=== PATIENT | female | born 1960 | race Caucasian/White ===

== ENCOUNTER 2016-08-09 11:16 | Emergency (ER) | payer MEDICAID ==
[2016-08-09 11:46] LABS: BASOPHILS 11.7 % (0-2); EOSINOPHILS 0 % (0-7); IMMATURE GRANULOCYTES 17.5 % (0-5); LYMPHOCYTES 20.3 % (15-50); MCH 29.2 pg (26.0-34.0); MCHC 33.7 g/dL (31.0-37.0); MCV 86.5 fL (80.0-100.0); MONOCYTES 16.2 % (2-11); NEUTROPHILS 34.3 % (40-80); RDW 14.9 % (11.5-14.5); WBC 3.2 10x3/uL (4.8-10.8)
[2016-08-09 11:49] LABS: HEMATOCRIT 16.6 % (36.0-48.0); HEMOGLOBIN 5.6 g/dL (12-16); PLATELET COUNT 18 10x3/uL (130-400); RBC 1.92 10x6/uL (4.00-5.40)
[2016-08-09 11:57] LABS: ALBUMIN 2.6 g/dL (3.4-5.0); ALKALINE PHOSPHATASE 82 U/L (46-116); ALT (SGPT) 8 U/L (10-68); BILIRUBIN - TOTAL 0.36 mg/dL (0.2-1.3); CALC OSMOLALITY 267 mosm/kg (275-300); CALCIUM 7.7 mg/dL (8.5-10.1); CARBON DIOXIDE 29.4 mmol/L (21.0-32.0); CHLORIDE - SERUM 102 mmol/L (98-107); CREATININE - SERUM 0.7 mg/dL (0.6-1.3); GLUCOSE 89 mg/dL (74-106); POTASSIUM - SERUM 4.3 mmol/L (3.5-5.1); PROTEIN - SERUM 5.6 g/dL (6.4-8.2); SODIUM 135 mmol/L (136-145); UREA NITROGEN 9 mg/dL (7-18); eGFR NON AFRICAN AMERICAN > 90 mL/min (90-120)
[2016-08-09 12:17] LABS: PLATELET ESTIMATE DECREASED; PLATELET MORPHOLOGY GIANT PLTS PRESENT
== END 2016-08-09 14:31 | disposition home or self-care (01) ==
LOC: D.ER 11:16
PROVIDERS: Emergency Medicine
DX: R55 Syncope and collapse (principal); D61.818 Other pancytopenia; D75.9 Disease of blood and blood-forming organs, unspecified; R16.1 Splenomegaly, not elsewhere classified

== ENCOUNTER 2017-05-22 17:13 | Inpatient (IN) | payer MEDICARE ==
[~2017-05-22] VITALS: Ht 154.9 cm; Wt 45.5 kg
--- NOTE | ~2017-05-22 | HEMODYNAMI ---
PATIENT:TRICIA DUARTE MEDICAL RECORD: [id number] : 58 LOCATION:[facility] D.2226 ADMISSION DATE: 05/22/17 Generatedon:05/23/20177:26 Patient name: TRICIA DUARTE Patient #: [id number] SSN: : 1960 Date of study: 05/23/2017 Page: Of Hemodynamic Procedure Report Patient Data Patient Demographics Procedure consent was obtained First Name: TRICIA Gender: Female Last Name: GERALD : 1960 Patient #: [id number] Age: 57 year(s) Race: Unknown Additional ID: [id number] Contact details [address]: [address] [place] [address] ROAD State: [place] City: [place] Zip code: [address] Admission Admission Data Admission Date: 05/22/2017 Admission Time: 23:59 Room #: D.2226 Procedure Procedure Types Cath Procedure Peripheral Cath Diagnostic Procedure Miscellaneous PARACENTESIS WITH GUIDE Procedure Description Procedure Date Procedure Date: 05/23/2017 Procedure Start Time: 6:57 Procedure Staff Name Function Giorgi [email or web address] RT License And Permit Specialist [employer] RT Monitor Thomas Bravo MD Performing Physician Rebecca Sahu RN Nurse Hemodynamics Rest Heart Rate: 108 (bpm) Snapshots Pre Cath Intra NCS Post Cath Vital Signs Time Heart Resp SPO2 NIBP Rhythm Pain Sedation Rate (ipm) (%) (mmHg) Status Level (bpm) 6:55:03 107 33 94 111/57(82) NSR 0 (11) 10(A) , No pain 6:59:17 106 33 96 112/59(81) NSR 0 (11) 10(A) , No pain 7:03:31 109 31 98 113/59(73) NSR 0 (11) 10(A) , No pain 7:08:30 108 31 95 106/58(0) NSR 0 (11) 10(A) , No pain 7:08:34 108 33 96 107/53(75) NSR 0 (11) 10(A) , No pain 7:12:48 104 30 98 102/47(70) NSR 0 (11) 10(A) , No pain 7:17:48 103 30 98 104/55(0) NSR 0 (11) 10(A) , No pain 7:17:50 103 35 98 88/53(57) NSR 0 (11) 10(A) , No pain 7:21:55 108 19 96 103/57(79) NSR 0 (11) 10(A) , No pain Procedure Log Time Note 6:47:56 Giorgi Isaac RT (R) (CV) sent for patient. Start room use. 6:48:05 Time tracking: Regular hours 6:48:11 Plan of Care:Hemodynamics will remain stable., Cardiac rhythm will remain stable., Comfort level will be maintained., Respiratory function will remain adequate., Patient/ family verbilizes understanding of procedure., Procedure tolerated without complication., Recovers from procedure without complications.. 6:48:16 Patient arrived from Med/Surg to IR. Patient remains on bed/stretcher for procedure. 6:48:17 Correct patient and procedure confirmed by team. 6:48:19 Signed procedure consent form obtained from patient. 6:48:20 ECG and BP/O2 sat monitors applied to patient. 6:48:21 6:48:21 Full Disclosure recording started 6:48:45 H&P Date Dictated: 05/23/2017 Within 30 days and on chart.. 6:48:46 Pre-procedure instructions explained to patient. 6:48:47 Pre-op teaching completed and patient verbalized understanding. 6:48:48 Family unavailable. 6:48:52 Patient NPO since Midnight. 6:48:55 Is patient on blood thinner?No 6:48:56 Is the patient allergic to Iodine/contrast media? No. 6:48:59 Patient diabetic? No. 6:49:01 6:49:02 ----Pre-sedation anethsthesia assessment.---- 6:49:05 Previous problem with sedation/anesthesia? No ? 6:49:08 Snore? Yes 6:49:10 Sleep apnea? No 6:49:14 Deviated septum? No 6:49:16 Opens mouth fully? Yes 6:49:18 Sticks out tongue? Yes 6:49:20 Airway obstruction? No ? 6:49:22 6:49:31 Patient pain scale 0/10 no. 6:49:41 Sharps counted by scrub and verified by R.N. 6:49:42 Alarms reviewed by R. N. 6:49:48 Right abdomen area was prepped with chlora-prep and draped in sterile fashion 6:53:48 Vital chart was started 6:53:49 Baseline sample Acquired. 6:56:02 Physician arrived 6:56:03 --------ALL STOP TIME OUT------ 6:56:04 Final Timeout: patient, procedure, and site verified with staff and physician. All members of the team are in agreement. 6:56:18 Right abdomen site verified by team. 6:56:24 Sedation plan: Local Anesthetic Medication:Lidocaine 6:57:02 Procedure started. 6:57:12 Local anesthetic to Abdominal area with Lidocaine 1% by Thomas Bravo MD.INITIAL ACCESS ONLY 6:57:13 [id number] 8FR CATH DRAIN TRAY opened to sterile field. 7:08:00 CONNECTING TUBE FOR DRAINAGE BAG ([id number]) opened to sterile field. 7:18:01 Dermabond Pen opened to sterile field. 7:18:13 3.9 liters drained 7:18:20 Procedure ended.(Physican Out) 7:18:24 Sharps counted by scrub and verified by R.N. 7:18:26 Insertion/operative site no bleeding no hematoma. 7:18:36 Post Abdominal area:stable 7:18:46 Post procedure instruction explained to patient.Patient verbalizes understanding. 7:18:47 Procedure and supply charges have been captured, reviewed, submitted and are correct. 7:22:37 Report given to Med/Surg. 7:23:19 Patient transfered to Med/Surg with Bed. 7:24:38 Full Disclosure recording stopped Device Usage Item Name Manufacture Quantity Catalog Hospital Part Current Mini mal Lot# / Number Charge Number Stock Stock Serial# Code [id number] CareFusion 1 [id number] 5 8FR CATH DRAIN TRAY CONNECTING TUBE [place] 1 [id number] FOR DRAINAGE Scientific BAG ([id number]) Dermabond Pen Ethicon 1 [id number] Signature Audit [place] Stage Time Signature Unsigned Intra-Procedure 05/23/2017 Giorgi 7:26:40 AM Isaac RT (R) (CV) Signatures Monitor : Giorgi Signature : Isaac RT Date : Time : [address] [address]
[2017-05-22 20:10] LABS: MCH 29.1 pg (26.0-34.0); MCHC 33.8 g/dL (31.0-37.0); RDW 17.1 % (11.5-14.5); WBC 12.6 10x3/uL (4.8-10.8)
[2017-05-22 20:29] LABS: ALBUMIN 2.4 g/dL (3.4-5.0); ALKALINE PHOSPHATASE 90 U/L (46-116); ALT (SGPT) 20 U/L (10-68); CALC OSMOLALITY 270 mosm/kg (275-300); CALCIUM 7.9 mg/dL (8.5-10.1); CARBON DIOXIDE 25.4 mmol/L (21.0-32.0); CHLORIDE - SERUM 102 mmol/L (98-107); CREATININE - SERUM 0.8 mg/dL (0.6-1.3); GLUCOSE 88 mg/dL (74-106); POTASSIUM - SERUM 4.6 mmol/L (3.5-5.1); PROTEIN - SERUM 6.1 g/dL (6.4-8.2); SODIUM 134 mmol/L (136-145); UREA NITROGEN 23 mg/dL (7-18); eGFR NON AFRICAN AMERICAN 78 mL/min (90-120)
[2017-05-22 20:36] LABS: INR 1.24 (0.85-1.17); PROTIME 15.2 SECONDS (11.6-15.0)
[2017-05-22 20:44] LABS: RBC 1.72 10x6/uL (4.00-5.40)
[2017-05-22 20:45] LABS: HEMATOCRIT 14.8 % (36.0-48.0); PLATELET COUNT 30 10x3/uL (130-400)
[2017-05-22 22:04] LABS: LYMPHOCYTES 65 % (15-50); NEUTROPHILS 23 % (40-80)
[2017-05-22 22:05] LABS: PLATELET ESTIMATE DECREASED
[2017-05-23 01:20] VITALS: BP 110/48; Ht 154.9 cm; Wt 45.5 kg
[2017-05-23] MEDS ORDERED: JADENU (03:06)
[2017-05-23] MEDS ORDERED: EXJADE500 MG PO (03:06)
[2017-05-23 06:33] VITALS: BP 181/69
[2017-05-23 12:31] VITALS: BP 98/33
== END 2017-05-23 13:44 | disposition home or self-care (01) | DRG 841 ==
LOC: D.ER 17:13 → D.MS 23:59
PROVIDERS: General Practice; Physician Assistant
PROC: 0W9G3ZZ Drainage of Peritoneal Cavity, Percutaneous Approach (ICD-10-PCS; principal; 2017-05-23 06:55)
DX: D75.81 Myelofibrosis (principal); R18.8 Other ascites; D61.818 Other pancytopenia; D63.8 Anemia in other chronic diseases classified elsewhere; R16.2 Hepatomegaly with splenomegaly, not elsewhere classified

== ENCOUNTER 2017-06-10 20:55 | Outpatient (CLI) | payer MEDICARE ==
[2017-05-23 01:20] VITALS: BMI 18.9
--- NOTE | ~2017-06-10 | HEMODYNAMI ---
PATIENT:TRICIA DUARTE MEDICAL RECORD: [id number] : 58 LOCATION:[facility] DMarieE08[facility]# [id number] ADMISSION DATE: 06/11/17 Generatedon:06/11/201712:39 Patient name: TRICIA DUARTE Patient #: [id number] SSN: : 1960 Date of study: 06/11/2017 Page: Of Hemodynamic Procedure Report Patient Data Patient Demographics Procedure consent was obtained First Name: TRICIA Gender: Female Last Name: GERALD : 1960 Patient #: [id number] Age: 57 year(s) Race: Unknown Additional ID: [id number] Contact details [address]: [address] [place] [address] ROAD State: [place] City: [place] Zip code: [address] Admission Admission Data Admission Date: 06/11/2017 Admission Time: 3:20 Room #: D.E08 Procedure Procedure Types Cath Procedure Peripheral Cath Diagnostic Procedure Miscellaneous PARACENTESIS WITH GUIDE Procedure Description Procedure Date Procedure Date: 06/11/2017 Procedure Start Time: 12:11 Procedure Staff Name Dory Allen MD Performing Physician Giorgi Gray RT Monitor Melonie Cornell RN Nurse Luis Alberto Fernandez RN Nurse Hemodynamics Rest Pre Cath Intra NCS Post Cath Vital Signs Time Heart Resp SPO2 etCO2 NIBP Rhythm Pain Sedation Rate (ipm) (%) (mmHg) (mmHg) Status Level (bpm) 12:09:28 96 29 99 0 112/66(78) NSR 0 (11) 10(A) , No pain 12:13:28 94 29 99 0 116/71(97) NSR 0 (11) 10(A) , No pain 12:17:27 94 25 100 0 114/70(91) NSR 0 (11) 10(A) , No pain 12:21:27 96 26 100 0 113/67(83) NSR 0 (11) 10(A) , No pain 12:25:31 91 19 97 0 105/64(87) NSR 0 (11) 10(A) , No pain 12:29:28 94 23 99 0 117/68(91) NSR 0 (11) 10(A) , No pain 12:33:30 92 25 97 0 110/62(88) NSR 0 (11) 10(A) , No pain 12:37:30 91 22 98 0 113/66(83) NSR 0 (11) 10(A) , No pain Procedure Log Time Note 12:03:48 Melonie Cornell RN sent for patient. Start room use. 12:03:56 Time tracking: Regular hours 12:04:00 Plan of Care:Hemodynamics will remain stable., Cardiac rhythm will remain stable., Comfort level will be maintained., Respiratory function will remain adequate., Patient/ family verbilizes understanding of procedure., Procedure tolerated without complication., Recovers from procedure without complications.. 12:04:16 Patient arrived from ED to IR. Patient remains on bed/stretcher for procedure. 12:04:18 Correct patient and procedure confirmed by team. 12:04:20 Signed procedure consent form obtained from patient. 12:04:22 ECG and BP/O2 sat monitors applied to patient. 12:04:23 - 12:04:34 Pre-procedure instructions explained to patient. 12:04:35 Pre-op teaching completed and patient verbalized understanding. 12:04:36 Family in waiting room. 12:04:38 Patient NPO since Midnight. 12:04:57 Patient pain scale 0/10 no pain. 12:05:02 IV patent on arrival in port with 0.9% NaCl at [facility]. 12:05:09 Right abdomen area was prepped with chlora-prep and draped in sterile fashion 12:05:10 Alarms reviewed by R. N. 12:05:11 Alarms reviewed by R. N. 12:05:11 Sharps counted by scrub and verified by R.N. 12:08:27 Vital chart was started 12:11:34 Physician arrived 12:11:35 --------ALL STOP TIME OUT------ 12:11:35 Final Timeout: patient, procedure, and site verified with staff and physician. All members of the team are in agreement. 12:11:38 Right abdomen site verified by team. 12:11:44 Sedation plan: Local Anesthetic Medication:Lidocaine 12:11:54 Procedure started. 12:11:54 Full Disclosure recording started 12:11:58 Local anesthetic to Abdominal area with Lidocaine 1% by Jesus Allen MD.INITIAL ACCESS ONLY 12:12:07 [id number] 8FR CATH DRAIN TRAY opened to sterile field. 12:12:20 CONNECTING TUBE FOR DRAINAGE BAG ([id number]) opened to sterile field. 12:37:17 Procedure ended.(Physican Out) 12:37:34 Dermabond Pen opened to sterile field. 12:37:53 Sharps counted by scrub and verified by R.N. 12:38:21 Insertion/operative site no bleeding no hematoma. 12:38:31 Post Abdominal area:stable 12:38:33 Post procedure instruction explained to patient.Patient verbalizes understanding. 12:38:34 Procedure and supply charges have been captured, reviewed, submitted an d are correct. 12:39:11 Report given to ED. 12:39:15 Patient transfered to ED with Stretcher. 12:39:39 Vital chart was stopped Device Usage Item Name Manufacture Quantity Catalog Hospital Part Current Mini [facility] Lot# / Number Charge Number Stock Stock Serial# Code [id number] CareFusion 1 [id number] 5 8FR CATH DRAIN TRAY CONNECTING TUBE [place] 1 [id number] 5 [id number] FOR DRAINAGE Scientific BAG ([id number]) Dermabond Pen Ethicon 1 [id number] Signature Audit [place] Stage Time Signature Unsigned Intra-Procedure 06/11/2017 Giorgi 12:39:37 PM Isaac RT (R) (CV) Signatures Monitor : Giorgi Signature : Isaac RT Date : Time : [facility] [address] [place] [address]
[~2017-06-10 20:55] MED LIST: EXJADE500 MG PO; JADENU
[2017-06-10 23:41] LABS: LYMPHOCYTES 31.7 % (15-50); MCH 28.3 pg (26.0-34.0); MCV 80.7 fL (80.0-100.0); NEUTROPHILS 54.2 % (40-80); RBC 2.44 10x6/uL (4.00-5.40); RDW 16.1 % (11.5-14.5); WBC 7.1 10x3/uL (4.8-10.8)
[2017-06-10 23:54] LABS: ALBUMIN 2.2 g/dL (3.4-5.0); ALKALINE PHOSPHATASE 95 U/L (46-116); ALT (SGPT) 15 U/L (10-68); AMYLASE - SERUM 26 U/L (25-115); CALC OSMOLALITY 278 mosm/kg (275-300); CALCIUM 7.5 mg/dL (8.5-10.1); CHLORIDE - SERUM 103 mmol/L (98-107); CREATININE - SERUM 0.7 mg/dL (0.6-1.3); LIPASE 50 U/L (73-393); POTASSIUM - SERUM 3.8 mmol/L (3.5-5.1); PROTEIN - SERUM 5.7 g/dL (6.4-8.2); SODIUM 137 mmol/L (136-145); UREA NITROGEN 22 mg/dL (7-18); eGFR NON AFRICAN AMERICAN > 90 mL/min (90-120)
[2017-06-10 23:55] LABS: APPEARANCE CLEAR (CLEAR); BILIRUBIN NEGATIVE (NEGATIVE); COLOR YELLOW (YELLOW); GLUCOSE NEGATIVE (NEGATIVE); KETONE NEGATIVE (NEGATIVE); NITRITE NEGATIVE (NEGATIVE); PROTEIN 1+ mg/dL (NEGATIVE); SPECIFIC GRAVITY 1.015 (1.005-1.020); UROBILINOGEN NORMAL (NORMAL)
[2017-06-10 23:56] LABS: BACTERIA FEW /hpf (NONE SEEN); EPITHELIAL CELLS 0-5 /hpf (0-5); RED CELLS - URINE 0-5 /hpf (0-5); WHITE CELLS - URINE 0-5 /hpf (0-5)
[2017-06-10 23:59] LABS: HEMATOCRIT 19.7 % (36.0-48.0); HEMOGLOBIN 6.9 g/dL (12-16)
[2017-06-11] LABS: GLUCOSE 136 mg/dL (74-106); PLATELET COUNT 17 10x3/uL (130-400)
[2017-06-11 00:30] LABS: PLATELET ESTIMATE DECREASED
[2017-06-11 00:41] LABS: INR 1.19 (0.85-1.17); PROTIME 14.6 SECONDS (11.6-15.0)
[2017-06-11 01:05] LABS: APTT > 200.0 SECONDS (22.8-39.4)
[2017-06-11 16:28] VITALS: BP 100/44
== END 2017-06-11 20:45 | disposition home or self-care (01) ==
LOC: OBSVTIME → D.ER 20:55 → D.CATH 20:55 → OBSVTIME 06-11 03:20 → D.MS 06-11 03:20 → D.ER 06-11 03:20 → D.EDHOLD 06-11 03:20 → D.CATH 06-11 20:45 → D.MS 06-11 20:45
PROVIDERS: Family Medicine
DX: R18.8 Other ascites (principal); D61.818 Other pancytopenia; Z01.812 Encounter for preprocedural laboratory examination

== ENCOUNTER 2017-07-28 22:24 | Inpatient (IN) | payer MEDICARE ==
[~2017-07-28] VITALS: Ht 154.9 cm; Wt 42.7 kg
--- NOTE | ~2017-07-28 | CN ---
PATIENT NAME:TRICIA DUARTE MEDICAL RECORD: [id number] : 58 LOCATION:D. D.2136 ADMIT DATE: 07/29/17 ACCOUNT: [id number] CONSULTING PHYSICIAN: DALILA MATHEWS MD REFERRING PHYSICIAN: SAI KC MD DATE OF CONSULTATION: 08/02/2017 Pulmonary Consultation CONSULT REQUESTING PHYSICIAN: Sai Kc MD REASON FOR CONSULTATION: Worsening pneumonia, left pleural effusion. HISTORY OF PRESENT ILLNESS: Ms. Duarte is a 57-year-old female who has a history of myelofibrosis, splenectomy, thrombocytopenia. The patient admitted with nausea and vomiting. She has pneumonia in the left lower lobe as well as small pleural effusion. Repeat chest radiograph shows that the pneumonia and pleural effusion is getting worse. According to the patient, she has some low-grade fever. She is very weak and lethargic. The patient had lost significant amount of weight. PAST MEDICAL HISTORY: 1. Myelofibrosis. 2. Leukemia. 3. History of bilateral pleural effusion. 4. History of syncope. 5. History of hepatosplenomegaly. 6. History of splenic infarct. She was on Eliquis at one stage. PAST SURGICAL HISTORY: She has splenectomy. ALLERGIES: SHE IS ALLERGIC TO PENICILLIN AND DEFERASIROX. MEDICATIONS: On Tizaro is reviewed. PERSONAL AND SOCIAL HISTORY: The patient is a nonsmoker, nondrinker. FAMILY HISTORY: Not known. PHYSICAL EXAMINATION: GENERAL: Now, the patient is lying comfortably in bed. She is not in acute distress. She is looking very frail. VITAL SIGNS: The blood pressure 131/68, pulse is 69, respiration is 20, temperature is 97.2, SpO2 96% on room air. HEENT: Conjunctivae are pink. Sclerae are not icteric. NECK: Supple, no JVD. CHEST: The chest excursion is minimal on both. There are some crackles. There is dullness on percussion on the left. HEART: Rhythm regular, normal sound, no murmur. ABDOMEN: Soft, bowel sounds present. No hepatosplenomegaly. RECTAL: Deferred. EXTREMITIES: No cyanosis, no clubbing, no pedal edema. SKIN: Warm, normal turgor. CENTRAL NERVOUS SYSTEM: The patient is awake and alert. There is no obvious intracranial abnormality. CONSULT REPORT [id number] DATA: CBC: WBC 16.7, hemoglobin 6.9, hematocrit 23.5, the platelet count 125. Chemistry: Sodium 135, potassium is 5, BUN is 7, creatinine 0.7. IMAGING: CTA of the chest was negative for PE, but there was initially small right and moderate left pleural effusion and there was multifocal infiltrate. There was also borderline cardiomegaly. The repeat chest radiograph on 01 August showed worsening left-sided pleural effusion and bilateral infiltrate. IMPRESSION: 1. Pneumonia, multilobar, left more than the right, most likely hospital-acquired pneumonia with the patient's recent hospitalization. 2. Left-sided pleural effusion, most likely parapneumonic. 3. Thrombocytopenia, status post splenectomy. 4. Leukocytosis. 5. Myelofibrosis. 6. Anemia. 7. Cachexia. 8. Possible leukemia. RECOMMENDATION: 1. Continue Levaquin and cefepime. I will add vancomycin to cover for Gram-positive cocci, possible MRSA, Gram-negative rods. 2. Proceed with thoracentesis in the morning. Labs are ordered. 3. Supplemental oxygen. 4. Follow up labs and chest radiograph. Dr. Minor has already been consulted for myelofibrosis. Dr. Kc, thank you for involving me in the care of Ms. Duarte. TRANSINT:[id number] Voice Confirmation ID: [id number] DOCUMENT ID: [id number] DALILA MATHEWS MD at 1208 CC: SAI KC MD [id number] DICTATION DATE: 08/02/17 1620 INDEPENDENT DISTRIBUTOR: 08/02/17 1654 DIS IN 08/05/17 [place] [id number] [place] [id number]
[2017-07-29 00:25] LABS: HEMATOCRIT 29.6 % (36.0-48.0); HEMOGLOBIN 8.5 g/dL (12-16); MCH 26.5 pg (26.0-34.0); MCHC 28.7 g/dL (31.0-37.0); MCV 92.2 fL (80.0-100.0); RBC 3.21 10x6/uL (4.00-5.40); RDW 19.7 % (11.5-14.5); WBC 17.8 10x3/uL (4.8-10.8)
[2017-07-29 00:26] LABS: PLATELET COUNT 201 10x3/uL (130-400)
[2017-07-29 00:29] LABS: ALBUMIN 2.5 g/dL (3.4-5.0); ALKALINE PHOSPHATASE 372 U/L (46-116); ALT (SGPT) 37 U/L (10-68); CALC OSMOLALITY 271 mosm/kg (275-300); CALCIUM 8.6 mg/dL (8.5-10.1); CARBON DIOXIDE 24.7 mmol/L (21.0-32.0); CHLORIDE - SERUM 102 mmol/L (98-107); CREATININE - SERUM 0.6 mg/dL (0.6-1.3); POTASSIUM - SERUM 4.3 mmol/L (3.5-5.1); PROTEIN - SERUM 6.5 g/dL (6.4-8.2); SODIUM 136 mmol/L (136-145); UREA NITROGEN 15 mg/dL (7-18); eGFR NON AFRICAN AMERICAN > 90 mL/min (90-120)
[2017-07-29 00:34] LABS: GLUCOSE 88 mg/dL (74-106)
[2017-07-29 00:58] LABS: ANISOCYTOSIS 2+; EOSINOPHILS 1 % (0-7); LYMPHOCYTES 43 % (15-50); MICROCYTOSIS 1+; NEUTROPHILS 42 % (40-80); PLATELET ESTIMATE DECREASED; POIKILOCYTOSIS 2+
[2017-07-29] MEDS ORDERED: ELIQUIS5 MG PO (20:52)
[2017-07-29 21:12] VITALS: BP 109/55
[2017-07-30] VITALS (7 sets, daily range): BP systolic 86–112; BP diastolic 43–62; BMI 16.0
[2017-07-30 06:50] LABS: ALBUMIN 1.9 g/dL (3.4-5.0); ALKALINE PHOSPHATASE 291 U/L (46-116); ALT (SGPT) 35 U/L (10-68); CALC OSMOLALITY 266 mosm/kg (275-300); CALCIUM 8.1 mg/dL (8.5-10.1); CARBON DIOXIDE 23.2 mmol/L (21.0-32.0); CHLORIDE - SERUM 101 mmol/L (98-107); CREATININE - SERUM 0.6 mg/dL (0.6-1.3); GLUCOSE 73 mg/dL (74-106); PROTEIN - SERUM 5.6 g/dL (6.4-8.2); SODIUM 134 mmol/L (136-145); UREA NITROGEN 12 mg/dL (7-18); eGFR NON AFRICAN AMERICAN > 90 mL/min (90-120)
[2017-07-30 08:12] LABS: HEMATOCRIT 32.5 % (36.0-48.0); HEMOGLOBIN 9.7 g/dL (12-16); MCH 27.7 pg (26.0-34.0); MCHC 29.8 g/dL (31.0-37.0); MCV 92.9 fL (80.0-100.0); PLATELET COUNT 94 10x3/uL (130-400); RDW 18.3 % (11.5-14.5); WBC 21.1 10x3/uL (4.8-10.8)
[2017-07-30 08:55] LABS: APTT 59.7 SECONDS (22.8-39.4); INR 1.52 (0.85-1.17); PROTIME 17.8 SECONDS (11.6-15.0)
[2017-07-30 09:55] LABS: BASOPHILS 1 % (0-2); LYMPHOCYTES 38 % (15-50); MONOCYTES 3 % (2-11); NEUTROPHILS 34 % (40-80); PLATELET ESTIMATE NORMAL; PLATELET MORPHOLOGY GIANT PLTS PRESENT; ROULEAUX OCC
[2017-07-30 11:09] LABS: APPEARANCE CLEAR (CLEAR); BILIRUBIN NEGATIVE (NEGATIVE); COLOR YELLOW (YELLOW); GLUCOSE NEGATIVE (NEGATIVE); KETONE NEGATIVE (NEGATIVE); NITRITE NEGATIVE (NEGATIVE); PROTEIN 1+ mg/dL (NEGATIVE); SPECIFIC GRAVITY 1.025 (1.005-1.020); UROBILINOGEN NORMAL (NORMAL)
[2017-07-30 11:26] LABS: BACTERIA MODERATE /hpf (NONE SEEN); EPITHELIAL CELLS 0-5 /hpf (0-5); GRANULAR CAST OCC /lpf (NONE SEEN); HYALINE CAST RARE /lpf (NONE SEEN); MUCUS <1+ /lpf (NONE SEEN); WHITE CELLS - URINE 0-5 /hpf (0-5)
[2017-07-30 16:30] LABS: MCH 26.5 pg (26.0-34.0); MCHC 28.8 g/dL (31.0-37.0); RBC 2.49 10x6/uL (4.00-5.40); RDW 19.7 % (11.5-14.5)
[2017-07-30 16:37] LABS: HEMATOCRIT 22.9 % (36.0-48.0); HEMOGLOBIN 6.6 g/dL (12-16); PLATELET COUNT 205 10x3/uL (130-400)
[2017-07-30 17:52] LABS: EOSINOPHILS 1 % (0-7); LYMPHOCYTES 44 % (15-50); MONOCYTES 2 % (2-11); NEUTROPHILS 49 % (40-80); PLATELET ESTIMATE INCREASED
[2017-07-30 17:53] LABS: POIKILOCYTOSIS OCC; POLYCHROMASIA OCC; STOMATOCYTES 1+
[2017-07-30 18:52] LABS: HEMATOCRIT 22.7 % (36.0-48.0); MCH 26.9 pg (26.0-34.0); MCHC 29.1 g/dL (31.0-37.0); MCV 92.7 fL (80.0-100.0); RBC 2.45 10x6/uL (4.00-5.40); RDW 19.5 % (11.5-14.5)
[2017-07-30 18:53] LABS: WBC 19.4 10x3/uL (4.8-10.8)
[2017-07-30 18:55] LABS: HEMOGLOBIN 6.6 g/dL (12-16); PLATELET COUNT 127 10x3/uL (130-400)
[2017-07-31 00:20] VITALS: BP 114/57
[2017-07-31 08:18] VITALS: BP 113/53
[2017-07-31 09:26] LABS: MCH 27.6 pg (26.0-34.0); MCHC 29.6 g/dL (31.0-37.0); MCV 93.3 fL (80.0-100.0); PLATELET COUNT 124 10x3/uL (130-400); RBC 2.68 10x6/uL (4.00-5.40); RDW 19.2 % (11.5-14.5)
[2017-07-31 09:36] LABS: HEMOGLOBIN 7.4 g/dL (12-16)
[2017-07-31 10:06] LABS: EOSINOPHILS 1 % (0-7); LYMPHOCYTES 32 % (15-50); MONOCYTES 1 % (2-11); NEUTROPHILS 41 % (40-80); PLATELET ESTIMATE NORMAL; PLATELET MORPHOLOGY GIANT PLTS PRESENT
[2017-07-31 10:11] LABS: ANISOCYTOSIS 1+; POIKILOCYTOSIS OCC
[2017-07-31 10:12] LABS: ALKALINE PHOSPHATASE 279 U/L (46-116); ALT (SGPT) 30 U/L (10-68); CALC OSMOLALITY 269 mosm/kg (275-300); CALCIUM 8.4 mg/dL (8.5-10.1); CARBON DIOXIDE 24.4 mmol/L (21.0-32.0); CHLORIDE - SERUM 103 mmol/L (98-107); CREATININE - SERUM 0.5 mg/dL (0.6-1.3); GLUCOSE 82 mg/dL (74-106); POLYCHROMASIA OCC; POTASSIUM - SERUM 3.8 mmol/L (3.5-5.1); PROTEIN - SERUM 5.9 g/dL (6.4-8.2); SODIUM 136 mmol/L (136-145); UREA NITROGEN 9 mg/dL (7-18); eGFR NON AFRICAN AMERICAN > 90 mL/min (90-120)
[2017-07-31 11:20] VITALS: BP 95/50
[2017-07-31 15:09] VITALS: BP 112/61
[2017-07-31 20:00] VITALS: BP 106/54
[2017-08-01 07:13] LABS: HEMOGLOBIN 9.7 g/dL (12-16); MCHC 30.3 g/dL (31.0-37.0); MCV 92.5 fL (80.0-100.0); PLATELET COUNT 104 10x3/uL (130-400); RBC 3.46 10x6/uL (4.00-5.40); RDW 18.6 % (11.5-14.5); WBC 12.4 10x3/uL (4.8-10.8)
[2017-08-01 07:20] LABS: ALBUMIN 1.9 g/dL (3.4-5.0); ALKALINE PHOSPHATASE 252 U/L (46-116); ALT (SGPT) 25 U/L (10-68); CALC OSMOLALITY 266 mosm/kg (275-300); CARBON DIOXIDE 25.2 mmol/L (21.0-32.0); CHLORIDE - SERUM 103 mmol/L (98-107); CREATININE - SERUM 0.6 mg/dL (0.6-1.3); GLUCOSE 80 mg/dL (74-106); PROTEIN - SERUM 5.6 g/dL (6.4-8.2); SODIUM 135 mmol/L (136-145); UREA NITROGEN 7 mg/dL (7-18); eGFR NON AFRICAN AMERICAN > 90 mL/min (90-120)
[2017-08-01 07:45] LABS: BASOPHILS 2 % (0-2); LYMPHOCYTES 39 % (15-50); NEUTROPHILS 42 % (40-80); PLATELET ESTIMATE DECREASED; PLATELET MORPHOLOGY GIANT PLTS PRESENT
[2017-08-01 08:36] VITALS: BP 139/69
[2017-08-01 11:34] VITALS: BP 148/78
[2017-08-01 15:42] VITALS: BP 136/71
[2017-08-01 19:00] VITALS: BP 115/43
[2017-08-02 03:51] VITALS: BP 102/41
[2017-08-02 07:51] VITALS: BP 120/65
[2017-08-02 10:40] LABS: HEMATOCRIT 23.5 % (36.0-48.0); MCH 26.8 pg (26.0-34.0); MCHC 29.4 g/dL (31.0-37.0); MCV 91.4 fL (80.0-100.0); PLATELET COUNT 125 10x3/uL (130-400); RBC 2.57 10x6/uL (4.00-5.40); RDW 19.8 % (11.5-14.5); WBC 16.7 10x3/uL (4.8-10.8)
[2017-08-02 10:42] LABS: HEMOGLOBIN 6.9 g/dL (12-16)
[2017-08-02 10:54] LABS: ALKALINE PHOSPHATASE 268 U/L (46-116); ALT (SGPT) 24 U/L (10-68); CALC OSMOLALITY 267 mosm/kg (275-300); CALCIUM 7.9 mg/dL (8.5-10.1); CARBON DIOXIDE 25.7 mmol/L (21.0-32.0); CHLORIDE - SERUM 104 mmol/L (98-107); CREATININE - SERUM 0.5 mg/dL (0.6-1.3); GLUCOSE 93 mg/dL (74-106); PROTEIN - SERUM 5.1 g/dL (6.4-8.2); SODIUM 135 mmol/L (136-145); UREA NITROGEN 7 mg/dL (7-18); eGFR NON AFRICAN AMERICAN > 90 mL/min (90-120)
[2017-08-02 10:56] LABS: BASOPHILS 1 % (0-2); LYMPHOCYTES 46 % (15-50); NEUTROPHILS 38 % (40-80)
[2017-08-02 10:57] LABS: PLATELET ESTIMATE DECREASED; PLATELET MORPHOLOGY GIANT PLTS PRESENT
[2017-08-02 11:21] VITALS: BP 135/72
[2017-08-02 15:07] VITALS: BP 131/68
[2017-08-02 20:00] VITALS: BP 134/70
[2017-08-03] VITALS: BP 120/57
[2017-08-03 04:00] VITALS: BP 111/51
[2017-08-03 09:11] LABS: ALKALINE PHOSPHATASE 260 U/L (46-116); ALT (SGPT) 20 U/L (10-68); CALC OSMOLALITY 273 mosm/kg (275-300); CALCIUM 8.2 mg/dL (8.5-10.1); CARBON DIOXIDE 24.5 mmol/L (21.0-32.0); CHLORIDE - SERUM 104 mmol/L (98-107); CREATININE - SERUM 0.6 mg/dL (0.6-1.3); GLUCOSE 148 mg/dL (74-106); POTASSIUM - SERUM 3.9 mmol/L (3.5-5.1); PROTEIN - SERUM 5.9 g/dL (6.4-8.2); SODIUM 136 mmol/L (136-145); UREA NITROGEN 9 mg/dL (7-18); eGFR NON AFRICAN AMERICAN > 90 mL/min (90-120)
[2017-08-03 09:14] VITALS: BP 115/55
[2017-08-03 09:22] LABS: HEMATOCRIT 21.1 % (36.0-48.0); MCH 26.4 pg (26.0-34.0); MCHC 28.9 g/dL (31.0-37.0); MCV 91.3 fL (80.0-100.0); PLATELET COUNT 143 10x3/uL (130-400); RBC 2.31 10x6/uL (4.00-5.40); WBC 22.7 10x3/uL (4.8-10.8)
[2017-08-03 10:21] LABS: HEMOGLOBIN 6.1 g/dL (12-16)
[2017-08-03 11:00] LABS: ANISOCYTOSIS OCC; LYMPHOCYTES 33 % (15-50); MONOCYTES 6 % (2-11); NEUTROPHILS 25 % (40-80); PLATELET ESTIMATE NORMAL; PLATELET MORPHOLOGY GIANT PLTS PRESENT
[2017-08-03 11:01] LABS: HYPOCHROMASIA OCC; SMUDGE CELLS OCC
[2017-08-03 11:40] VITALS: BP 119/68
[2017-08-03 20:00] VITALS: BP 117/54
[2017-08-03 22:18] VITALS: Ht 154.9 cm; Wt 42.7 kg
[2017-08-04 07:59] VITALS: BP 108/55
[2017-08-04 09:52] LABS: CALC OSMOLALITY 270 mosm/kg (275-300); CALCIUM 8.1 mg/dL (8.5-10.1); CARBON DIOXIDE 25.3 mmol/L (21.0-32.0); CHLORIDE - SERUM 102 mmol/L (98-107); CREATININE - SERUM 0.5 mg/dL (0.6-1.3); POTASSIUM - SERUM 3.7 mmol/L (3.5-5.1); SODIUM 137 mmol/L (136-145); UREA NITROGEN 8 mg/dL (7-18); eGFR NON AFRICAN AMERICAN > 90 mL/min (90-120)
[2017-08-04 09:53] LABS: GLUCOSE 84 mg/dL (74-106)
[2017-08-04 10:00] LABS: HEMATOCRIT 28.7 % (36.0-48.0); HEMOGLOBIN 8.7 g/dL (12-16); MCH 28.4 pg (26.0-34.0); MCHC 30.3 g/dL (31.0-37.0); MCV 93.8 fL (80.0-100.0); PLATELET COUNT 84 10x3/uL (130-400); RBC 3.06 10x6/uL (4.00-5.40); RDW 17.9 % (11.5-14.5); WBC 20.9 10x3/uL (4.8-10.8)
[2017-08-04 11:18] LABS: INR 1.12 (0.85-1.17)
[2017-08-04 11:27] VITALS: BP 116/62
[2017-08-04 12:25] LABS: ANISOCYTOSIS OCC; BASOPHILS 1 % (0-2); LYMPHOCYTES 27 % (15-50); MONOCYTES 10 % (2-11); NEUTROPHILS 24 % (40-80); PLATELET ESTIMATE DECREASED; PLATELET MORPHOLOGY GIANT PLTS PRESENT; POLYCHROMASIA OCC; ROULEAUX OCC; SMUDGE CELLS OCC
[2017-08-04 15:22] VITALS: BP 117/63
[2017-08-04 20:00] VITALS: BP 115/56
[2017-08-04 22:08] LABS: OVA + PARASITE EXAM Final report (())
[2017-08-05 04:00] VITALS: BP 122/57
[2017-08-05 05:29] LABS: CALC OSMOLALITY 276 mosm/kg (275-300); CALCIUM 8.1 mg/dL (8.5-10.1); CARBON DIOXIDE 26.2 mmol/L (21.0-32.0); CHLORIDE - SERUM 104 mmol/L (98-107); CREATININE - SERUM 0.4 mg/dL (0.6-1.3); GLUCOSE 92 mg/dL (74-106); POTASSIUM - SERUM 3.6 mmol/L (3.5-5.1); SODIUM 139 mmol/L (136-145); UREA NITROGEN 10 mg/dL (7-18); eGFR NON AFRICAN AMERICAN > 90 mL/min (90-120)
[2017-08-05 05:41] LABS: HEMATOCRIT 27.7 % (36.0-48.0); HEMOGLOBIN 8.4 g/dL (12-16); MCH 28.1 pg (26.0-34.0); MCHC 30.3 g/dL (31.0-37.0); MCV 92.6 fL (80.0-100.0); PLATELET COUNT 171 10x3/uL (130-400); RBC 2.99 10x6/uL (4.00-5.40); RDW 18.3 % (11.5-14.5); WBC 18.7 10x3/uL (4.8-10.8)
[2017-08-05 07:54] LABS: LYMPHOCYTES 36 % (15-50); MONOCYTES 4 % (2-11); NEUTROPHILS 22 % (40-80); PELGER HUET OCC; PLATELET ESTIMATE NORMAL
[2017-08-05 07:55] LABS: ANISOCYTOSIS OCC; PLATELET MORPHOLOGY GIANT PLTS PRESENT; ROULEAUX OCC; SMUDGE CELLS OCC
[2017-08-05 08:30] VITALS: BP 121/69
[2017-08-05 11:04] VITALS: BP 135/72
[2017-08-05 12:43] LABS: PATH REVIEW PERIPHERAL SMEAR REVIEWED
[2017-08-05] MEDS ORDERED: ZOVIRAX800 MG PO (14:33)
[2017-08-05] MEDS ORDERED: FLAGYL500 MG PO (14:34)
[2017-08-05] MEDS ORDERED: PROTONIX40 MG PO (14:39)
[2017-08-05 16:52] VITALS: BP 124/77
== END 2017-08-05 17:53 | disposition home or self-care (01) | DRG 871 ==
LOC: D.ER 22:24 → D.M2 07-29 01:04 → D.EDHOLD 07-29 01:04 → D.M2 07-29 17:48
PROVIDERS: Emergency Medicine; Family Medicine; Internal Medicine Hematology & Oncology; Internal Medicine Nephrology; Radiology Diagnostic Radiology; Student in an Organized Health Care Education/Training Program
DX: A41.9 Sepsis, unspecified organism (principal); J18.9 Pneumonia, unspecified organism; E43 Unspecified severe protein-calorie malnutrition; D75.81 Myelofibrosis; Z68.1 Body mass index [BMI] 19.9 or less, adult; A04.72 Enterocolitis due to Clostridium difficile, not specified as recurrent; R18.8 Other ascites; D63.8 Anemia in other chronic diseases classified elsewhere; E86.0 Dehydration; Z85.6 Personal history of leukemia; D69.6 Thrombocytopenia, unspecified; B00.1 Herpesviral vesicular dermatitis; G44.40 Drug-induced headache, not elsewhere classified, not intractable; T36.1X5A Adverse effect of cephalosporins and other beta-lactam antibiotics, initial encounter; Y92.230 Patient room in hospital as the place of occurrence of the external cause